=== PATIENT | male | born 1960 | race Hispanic/Latino ===

== ENCOUNTER 2018-02-24 16:41 | Emergency (ER) | payer OTHER ==
[~2018-02-24] VITALS: Ht 172.7 cm; Wt 91.2 kg
[~2018-02-24 16:41] MED LIST: ALFUZOSIN HCL10 MG PO; AMPHETAMINE SAL30 MG PO; Adderall PO; BIOTIN 5000MCG PO; Biotin PO; Fish Oil; Flagyl PO; LACTULOSE10 GM/151 PO; METOPROLOL TART25 MG PO; NEXIUM40 MG PO; NORVASC5 MG PO; Norvasc PO; PERCOCET 5/31 TABLET PO; TOVIAZ4 MG PO; Uroxatral PO; VITAMIN D5000 INTUN PO
[2018-02-24 17:24] LABS: HEMATOCRIT 45.2 % (38.0-50.0); HEMOGLOBIN 15.6 G/DL (12.5-16.6); MCH 30.2 PG (29.0-34.0); MCHC 34.5 G/DL (30.0-36.0); MCV 87.6 FL (86-99); PLATELET COUNT 216 K/uL (156-360); RBC DIS.WIDTH-CV 14.1 % (11.8-14.6); RBC DIS.WIDTH-SD 45.1 % (39-53); RED BLOOD COUNT 5.16 M/uL (4.00-5.50); WHITE BLOOD COUNT 10.6 K/uL (4.1-10.2)
[2018-02-24 17:34] LABS: ALBUMIN 4.3 g/dL (3.2-4.8); CHLORIDE 106 mEq/L (99-109); POTASSIUM 3.5 mEq/L (3.7-5.4); SODIUM 142 mEq/L (136-147)
[2018-02-24 17:36] LABS: GLUCOSE 129 mg/dL (70-99)
[2018-02-24 17:37] LABS: TOTAL PROTEIN 7.4 g/dL (6.4-8.3)
[2018-02-24 17:38] LABS: TOTAL BILIRUBIN 0.6 mg/dL (0.0-1.0)
[2018-02-24 17:40] LABS: ALKALINE PHOSPHATASE 80 IU/L (3-129); CREATININE 1.4 mg/dL (0.6-1.3); GFR ESTIMATE (CALCULATED) 56 mL/min/ (58.99-99999)
[2018-02-24 17:41] LABS: UREA NITROGEN (BUN) 10 mg/dL (9-23)
[2018-02-24 17:42] LABS: AST (GOT) 22 IU/L (2-34)
[2018-02-24 17:43] LABS: ALT (GPT) 29 IU/L (3-49); LIPASE 15 U/L (1.0-51.0)
[2018-02-24] MEDS ORDERED: BENTYL10 MG PO (19:59)
[2018-02-24] MEDS ORDERED: ZOFRAN4 MG PO (19:59)
[2018-02-24 20:05] VITALS: BP 134/81
== END 2018-02-24 20:25 | disposition home or self-care (01) ==
LOC: EME 16:41
PROVIDERS: Physician Assistant
DX: R10.9 Unspecified abdominal pain (principal); R11.2 Nausea with vomiting, unspecified; R19.7 Diarrhea, unspecified; K63.89 Other specified diseases of intestine; I10 Essential (primary) hypertension; K21.9 Gastro-esophageal reflux disease without esophagitis; E78.5 Hyperlipidemia, unspecified; G47.30 Sleep apnea, unspecified; G47.419 Narcolepsy without cataplexy; Z96.21 Cochlear implant status; Z98.890 Other specified postprocedural states; Z90.49 Acquired absence of other specified parts of digestive tract; Z88.8 Allergy status to other drugs, medicaments and biological substances
CPT/HCPCS: 74177; 80053; 83690; 85027; 99281; 99284; J2405; J7030